=== PATIENT | female | born 1950 | race Caucasian/White ===

== ENCOUNTER 2021-04-08 13:12 | Outpatient (REF) | payer MEDICARE, OTHER, SELFPAY ==
[2021-04-08 16:01] LABS: MANUAL DIFF FLAG NO
[2021-04-08 16:06] LABS: Basophils Percent Auto 0.3 % (0-2); Eosinophils Absolute Auto 0.2 X10*3/uL (0.0-0.4); Eosinophils Percent Auto 2.6 % (0-4); Hematocrit 38.3 % (37-47); Hemoglobin 12.5 g/dl (12.0-16.0); Imm Gran Abs Auto 0.01 X10*3/uL (0.00-0.03); Imm Gran Pct Auto 0.2 % (0.0-0.4); Lymphocytes Percent Auto 33.4 % (20-40); Mean Corpuscular HGB Conc 32.6 g/dl (31.0-35.0); Mean Corpuscular Hemoglobin 31.4 pg (27.0-33.0); Mean Corpuscular Volume 96.2 fL (80-98); Mean Platelet Volume 10.8 fL (9.4-12.3); Monocytes Absolute Auto 0.5 X10*3/uL (0.1-1.2); Monocytes Percent Auto 7.9 % (2-11); Neutrophils Absolute Auto 3.3 X10*3/uL (2.0-8.3); Neutrophils Percent Auto 55.6 % (45-73); Platelet Count 234 X10*3/uL (160-400); Red Blood Count 3.98 X10*6/uL (4.20-5.50); Red Cell Distribution Width 12.3 % (11.0-16.0); White Blood Count 5.8 X10*3/uL (4.8-10.8)
[2021-04-08 16:24] LABS: Alanine Aminotransferase 23 U/L (0-31); Alkaline Phosphatase 66 U/L (39-117); Anion Gap 11 (12-20); Aspartate Amino Transferase 21 U/L (5-31); Bilirubin Total 0.4 mg/dL (0.0-1.0); Blood Urea Nitrogen 18 mg/dL (9-16); Calcium 9.6 mg/dL (8.4-10.2); Carbon Dioxide 28 mmol/L (22-29); Chloride 106 mmol/L (96-108); Cholesterol 165 mg/dL; Estimated Glomerular Filt Rate > 60; Glucose Random 95 mg/dL (60-115); HDL Cholesterol 43 mg/dL; LDL Cholesterol Calculated 102 mg/dl; Sodium 141 mmol/L (135-145); Triglycerides 104 mg/dL
[2021-04-08 16:46] LABS: Thyroid Stimulating Hormone 2.69 uIU/mL (0.32-4.0)
== END 2021-04-08 13:13 | disposition home or self-care (01) ==
LOC: HO.LAB 13:12
PROVIDERS: Absent Provider Internal Medicine; PCP Internal Medicine; Visit Provider Internal Medicine
DX: E78.00 Pure hypercholesterolemia, unspecified (principal); F32.89 Other specified depressive episodes; I10 Essential (primary) hypertension; R05 Cough; I49.3 Ventricular premature depolarization; Z82.49 Family history of ischemic heart disease and other diseases of the circulatory system
CPT/HCPCS: 36415; 80053; 80061; 84443; 85025; 93005; 99202

== ENCOUNTER → 2021-04-22 15:02 | Outpatient (REF) | payer MEDICARE, OTHER, SELFPAY ==
--- NOTE | 2021-04-22 15:10 | HM_ITS ---
Total monitoring time 4 days and 4 hours. Underlying rhythm is sinus. Minimum heart rate 58/minute. Maximum 132/minute. Average 88/Min. About 90% of the time, rate >100/min. No atrial fibrillation or flutter episodes noted. Frequent PVCs noted; burden 6.2%; longest run 3 beats. Occasional PACs; minimal burden; longest run 11 beats. No patient events. MTDD
== END ==
LOC: HO.CARD 15:02
PROVIDERS: PCP Internal Medicine; Visit Provider Internal Medicine
DX: I49.3 Ventricular premature depolarization (principal)
CPT/HCPCS: 93242

== ENCOUNTER → 2021-05-01 14:08 | Outpatient (BNVA) | payer MEDICARE, OTHER, SELFPAY | PROVIDERS: PCP Internal Medicine; Visit Provider Physician Assistant | DX: Z12.11 Encounter for screening for malignant neoplasm of colon (principal); K21.9 Gastro-esophageal reflux disease without esophagitis; R13.10 Dysphagia, unspecified; Z78.9 Other specified health status | CPT/HCPCS: 99202 ==

== ENCOUNTER → 2021-05-09 15:16 | Outpatient (REF) | payer MEDICARE, OTHER, SELFPAY ==
--- NOTE | 2021-05-09 15:22 | CA_ITS ---
Transthoracic Echocardiogram Patient (Last, First, Middle): Sheila Pryor, Gender: Female Date of : 1950 Age: 70 Procedure Date: 05/09/2021 Procedure Type: Transthoracic Echocardiogram Location: OP Height: 172.72 cm Weight: 102.06 kg BSA: 2.15 m2 Heart Rate: bpm BP: 130 / 80 mmHg Lead Business Analyst: VIRGILIO King MD: Earl Qiu MD Symptoms: Z82.49 - Family history of ischemic heart disease and oth... Study Quality: Fair ECG Rhythm: Sinus Conclusions: - The left ventricular systolic function is normal. The visually estimated ejection fraction is between 55-60%. - There is mildly increased left ventricular wall thickness. - No obvious valvular pathology seen on this study. Findings Left Ventricle Normal left ventricular cavity size. There is mildly increased left ventricular wall thickness. The left ventricular systolic function is normal. The visually estimated ejection fraction is between 55-60%. There is no evidence of regional wall motion abnormalities. Diastolic function is indeterminate on the basis of available data. Right Ventricle Normal right ventricular cavity size and systolic function. Atria Both atria are normal in size. Aortic Valve There is a normal trileaflet aortic valve. There is no aortic valve stenosis. There is no aortic valve regurgitation. Mitral Valve The mitral valve appears normal. There is no mitral valve regurgitation. There is no mitral valve stenosis. Pulmonic Valve The pulmonic valve was not well visualized. Tricuspid Valve Normal tricuspid valve structure. There is trace tricuspid valve regurgitation. The pulmonary artery systolic pressure is normal. Great Vessels The aortic annulus, sinuses of valsalva, and asc aorta are normal in size. Venous The inferior vena cava is normal in size and collapses greater than 50% with inspiration. Pericardium/Pleural There is no evidence of pericardial effusion. Prior Study Comparison No prior study available for comparison. Recommendations, Care & Conclusions No obvious valvular pathology seen on this study. Measurements 2D Linear Measurements IVSd: 1.17 0.6-0.9/0.6-1.0 cm LVIDd: 5.10 3.9-5.3/4.2-5.9 cm LVIDd Index: 2.37 2.4-3.2/2.2-3.1 cm/m2 LVIDs: 3.76 2.0-3.6 cm LVPWd: 1.14 0.7-1.1 cm Ao Root: 3.20 2.1-3.5 cm LA Diam: 4.00 2.7-3.8/3.0-4.0 cm LAIDs Index: 1.86 1.5-2.3 cm/m2 LV Mass: 285.19 67-162/88-224 g LV Mass Index: 132.64 43-95/49-115 g/m2 LVOT Diam: 2.10 3.0+(-)1.3 cm 2D Systolic Function EF 4C: 57.70 >55% EF 2C: 55.60 >55% Mitral Valve E'Lateral: 8.27 E'Medial: 8.59 Aortic Valve AoV Pk Darek: 1.29 AoV Mn Darek: 0.94 AoV VTI: 0.26 AoV Pk Grad: 7.00 Aov Mn Grad: 4.00 ALBERTA Cont.VTI: 2.80 LVOT LVOT Pk Darek: 1.02 LVOT Mn Darek: 0.75 LVOT VTI: 0.21 LVOT Pk Grad: 4.00 LVOT Mn Grad: 3.00 LVOT Diam: 2.10 LVOT Area: 3.46 Diastolic Function E'Medial: 8.59 E' Laterial: 8.27 Right Ventricle TAPSE (mm): 2.91 TVS' Darek: 12.30 Tricuspid Valve TR Pk Darek: 2.39 TR Pk Grad: 23.00 RA Press: 3.00 RVSP: 26.00 Great Vessels Aorta Ao Root-2D: 3.20 2.0-3.7 cm Ao Asc: 3.40 2.1-3.4 cm Updated in Other Vendor System with Status of Final Earl Qiu MD electronically signed on 05/10/2021 10:41:33 AM with status of Final
== END ==
LOC: HO.CARD 15:16
PROVIDERS: Visit Provider Internal Medicine
DX: I49.3 Ventricular premature depolarization (principal); I10 Essential (primary) hypertension; Z82.49 Family history of ischemic heart disease and other diseases of the circulatory system
CPT/HCPCS: 93306

== ENCOUNTER 2021-06-05 14:51 | Outpatient (REF) | payer MEDICARE, OTHER, SELFPAY ==
[2021-06-05 16:32] LABS: Alanine Aminotransferase 22 U/L (0-31); Albumin Level 4.1 g/dL (3.5-5.0); Alkaline Phosphatase 74 U/L (39-117); Anion Gap 10 (12-20); Aspartate Amino Transferase 22 U/L (5-31); Bilirubin Total 0.4 mg/dL (0.0-1.0); Blood Urea Nitrogen 19 mg/dL (9-16); Calcium 9.6 mg/dL (8.4-10.2); Carbon Dioxide 31 mmol/L (22-29); Chloride 104 mmol/L (96-108); Cholesterol 191 mg/dL; Estimated Glomerular Filt Rate 56; Glucose Random 78 mg/dL (60-115); HDL Cholesterol 45 mg/dL; LDL Cholesterol Calculated 134 mg/dl; Potassium 3.9 mmol/L (3.3-5.1); Sodium 141 mmol/L (135-145); Total Protein 7.1 g/dL (6.5-8.0); Triglycerides 62 mg/dL
== END 2021-06-05 14:52 | disposition home or self-care (01) ==
LOC: HO.LAB 14:51
PROVIDERS: Absent Provider Internal Medicine; PCP Internal Medicine; Referring Provider Internal Medicine; Visit Provider Internal Medicine
DX: Z00.00 Encounter for general adult medical examination without abnormal findings (principal); F33.42 Major depressive disorder, recurrent, in full remission; I10 Essential (primary) hypertension; R13.19 Other dysphagia
CPT/HCPCS: 36415; 80053; 80061; 99212

== ENCOUNTER 2021-07-26 10:44 | Outpatient (REF) | payer MEDICARE, OTHER, SELFPAY ==
--- NOTE | ~2021-07-26 | FL_ITS ---
EXAMINATION: FL BARIUM SWALLOW CLINICAL INFORMATION: Dysphagia. COMPARISON: None TECHNIQUE: Barium swallow examination is performed using fluoroscopic evaluation in addition to multiple fluoroscopic spot views. The patient is imaged both upright and prone and using both thick and thin sulfate along with effervescent granules. Fluoroscopy time: 1.8 minutes DAP: 10.498 Gy-cm2 Images: 84 FINDINGS: Following intravenous administration of thick barium and barium-coated turkey, there is normal propagation of bolus from the oral cavity through the pharynx, esophagus into stomach without any evidence of obstruction, narrowing or stricture. There is mild retention in the piriform sinuses which clears with subsequent swallowing. Trace laryngeal penetration is seen. There is no aspiration. On placing patient prone lying and oral administration of thin barium, there is good distention of the entire esophagus without any evidence of obstruction, narrowing or stricture. There is a small to moderate-sized sliding hiatal hernia with moderate gastroesophageal reflux. FL/FL barium swallow IMPRESSION: Unremarkable esophagus except for trace laryngeal penetration. Moderate-sized sliding hiatal hernia with moderate gastroesophageal reflux.
== END 2021-07-26 10:45 | disposition home or self-care (01) ==
LOC: HO.XRAY 10:44
PROVIDERS: PCP Internal Medicine; Visit Provider Physician Assistant
DX: R13.10 Dysphagia, unspecified (principal); K21.9 Gastro-esophageal reflux disease without esophagitis
CPT/HCPCS: 74220

== ENCOUNTER 2021-07-26 12:05 | Emergency (ER) | payer MEDICARE, OTHER, SELFPAY ==
--- NOTE | ~2021-07-26 | XR_ITS ---
EXAMINATION: XR FINGER, LEFT CLINICAL INFORMATION: Pain and swelling COMPARISON: None TECHNIQUE: Three views of the left thumb. FINDINGS: There is a nondisplaced fracture through the base of the distal phalanx of the thumb. This does not appear intra-articular with the IP joint. There is mild arthritis at the IP joint. There is overlying soft tissue swelling. XR/XR finger LT min 2V IMPRESSION: Nondisplaced fracture of the base of the distal phalanx of the thumb.
[2021-07-26 12:08] VITALS: BP 144/71; PULSE 88; RESP 18; TEMP 36.7; O2SAT 94; BMI 32.6
--- NOTE | 2021-07-26 13:17 | ED.EXTPRO ---
HPI - Extremity Problem General Chief complaint: Extremity Injury, Upper Stated complaint: Thumb inj Time Seen by Provider: 07/26/21 13:17 Source: patient Mode of arrival: ambulatory History of Present Illness HPI Narrative: 70-year-old female with no significant past medical history presenting to the ED complaining of left thumb swelling & pain x2 weeks s/p trunk door crushing finger. Denies numbness, tingling, weakness, injury to other area. MD Complaint: extremity pain, extremity swelling and joint paint Onset (ago): week(s) Related Data Home Medications Medication Instructions Recorded Confirmed bupropion HCl 300 mg 24 hr tablet, 300 mg PO DAILY 04/08/21 06/05/21 extended release hydrochlorothiazide 12.5 mg capsule 12.5 mg PO DAILY 04/08/21 06/05/21 losartan 50 mg tablet 50 mg PO DAILY 04/08/21 06/05/21 meloxicam 15 mg tablet 15 mg PO DAILY 04/08/21 06/05/21 omeprazole 40 mg capsule,delayed 40 mg PO DAILY 04/08/21 06/05/21 release oxybutynin chloride 15 mg 15 mg PO DAILY 04/08/21 06/05/21 tablet,extended release 24 hr sertraline 100 mg tablet 200 mg PO DAILY 04/08/21 06/05/21 simvastatin 40 mg tablet 40 mg PO BEDTIME 04/08/21 06/05/21 Previous Rx's Medication Instructions Recorded methylcellulose (laxative) 500 mg 500 mg PO BID #60 tab 05/01/21 tablet (Citrucel) Allergies Allergy/AdvReac Type Severity Reaction Status Date / Time No Known Allergies Allergy Verified 07/26/21 12:08 Review of Systems Review of Systems: Constitutional: No Fever, No Chills ENT/Mouth: No Ear Pain, No Nasal Congestion, No sore throat, No Rhinorrhea Cardiovascular: No Chest Pain, No SOB Respiratory: No Cough, No Sputum Gastrointestinal: No Nausea, No Vomiting, No Diarrhea, No Constipation, No Abdominal pain Genitourinary: No Dysuria, No Urgency, No Flank Pain Musculoskeletal: + joint pain, No Myalgias, + Joint Swelling Skin: No Skin Lesions, No rash Neuro: No Weakness, No Numbness, No Paresthesias Yes all other systems are reviewed and are negative [facility] Past Medical History Attestation statement: The following information was validated with the patient. Medical History Breast abscess Surgical History History of esophagogastroduodenoscopy (EGD) Hx of colonoscopy No pertinent past surgical history Family History Family History Mother Stroke Father No problems noted. Brother Myocardial infarction Son History of open heart surgery, Onset Age: 36 Pacemaker, Onset Age: 36 Social History Social History Household Members Other:: lives with son Alcohol intake: never Patient Tobacco Use Status: Former Tobacco user Quit Date: 30 yrs ago Advance Directives: Yes Advance Directives Information Provided: Yes Advance Directives on File: No Current occupational status: disabled Physical Exam Vital Signs: Vital Signs: Last Vital Signs Temp 98.0 F 07/26/21 12:08 Pulse 88 07/26/21 12:08 Resp 18 07/26/21 12:08 BP 144/71 H 07/26/21 12:08 Pulse Ox 94 07/26/21 12:08 BMI result Body Mass Index 32.6 Const: General: cooperative, healthy appearing and no acute distress Orientation/consciousness: patient oriented x3 Limitations: no limitations HENMT: Head: Yes normal to inspection Ears: hearing grossly normal bilaterally General nose exam: Normal external nose present Face and sinus: Yes normal facial exam Eyes: General: appearance normal, both eyes and all related structures EOM: EOMs intact bilaterally Neck: Neck: Yes normal visual inspection and Yes no meningeal signs Resp: Effort & Inspection: normal respiratory effort and no respiratory distress Cardio: Rate: regular rate Peripheral pulses: radial pulses present Skin: Rashes: no rashes Wounds: no wounds Neuro: General: patient oriented x3 and no meningeal signs Gait exam (Neuro): Normal gait present Extrem: Other: Left distal thumb with noted swelling and mild subungual hematoma. Tender to palpation. Mild limited flexion to PIP secondary to pain. [id number] opposition intact. Sensation intact to light touch. Course Course Course Narrative: XR finger LT min 2V IMPRESSION: Nondisplaced fracture of the base of the distal phalanx of the thumb >> patient placed in finger splint, is to follow-up with orthopedics Discharge Plan Discharge Clinical Impression: Fracture of phalanx of digit of hand Qualifiers: Encounter type: initial encounter Fracture type: closed Qualified Code(s): S62.609A - Fracture of unspecified phalanx of unspecified finger, initial encounter for closed fracture Patient Disposition: Home, Self-Care Instructions: Finger Fracture (ED) Additional Instructions: You broke the distal part of her thumb Wear splint at all times, keep dry and clean Follow-up with naval architect specialist in 1 week Take Tylenol and Motrin Ice and elevate if pain becomes unbearable, finger looks infected, or you develop fever please return to the ED Prescriptions: No Action Citrucel 500 mg tablet 500 mg PO BID Qty: 60 RF: 5 hydrochlorothiazide 12.5 mg capsule 12.5 mg PO DAILY RF: 0 omeprazole 40 mg capsule,delayed release(DR/EC) 40 mg PO DAILY RF: 0 sertraline 100 mg tablet 200 mg PO DAILY RF: 0 simvastatin 40 mg tablet 40 mg PO BEDTIME RF: 0 losartan 50 mg tablet 50 mg PO DAILY RF: 0 bupropion HCl 300 mg tablet extended release 24 hr 300 mg PO DAILY RF: 0 oxybutynin chloride 15 mg tablet extended release 24hr 15 mg PO DAILY RF: 0 meloxicam 15 mg tablet 15 mg PO DAILY RF: 0 Referrals: Simone Mckee PA-C [Physician Industrial Engineering Director] - 5 days
== END 2021-07-26 13:41 | disposition home or self-care (01) ==
PROVIDERS: Emergency Provider Emergency Medicine; PCP Internal Medicine
DX: S62.502A Fracture of unspecified phalanx of left thumb, initial encounter for closed fracture (principal); R22.32 Localized swelling, mass and lump, left upper limb; Y29.XXXA Contact with blunt object, undetermined intent, initial encounter; Y93.9 Activity, unspecified; Y92.9 Unspecified place or not applicable; Y99.9 Unspecified external cause status; Z79.899 Other long term (current) drug therapy
CPT/HCPCS: 29130; 73140; 99283

== ENCOUNTER 2021-09-09 17:18 | Outpatient (REF) | payer MEDICARE, OTHER, SELFPAY | END 2021-09-09 17:19 | disposition home or self-care (01) | LOC: HO.LAB 17:18 | PROVIDERS: PCP Internal Medicine; Visit Provider Internal Medicine | DX: Z13.89 Encounter for screening for other disorder (principal) ==

== ENCOUNTER 2021-09-23 16:52 | Outpatient (REF) | payer MEDICARE, OTHER, SELFPAY ==
--- NOTE | ~2021-09-23 | XR_ITS ---
EXAMINATION: XR HIP, LEFT CLINICAL INFORMATION: Osteoarthritis COMPARISON: None TECHNIQUE: Two views of the left hip. FINDINGS: Bone alignment is normal. No fracture or dislocation is seen. There is mild left hip arthritis with small osteophytes. There are degenerative changes at the pubic symphysis. Soft tissues are unremarkable. XR/XR hip LT min 2V IMPRESSION: Mild left hip arthritis.
== END 2021-09-23 16:53 | disposition home or self-care (01) ==
LOC: HO.XRAY 16:52
PROVIDERS: PCP Internal Medicine; Visit Provider Internal Medicine
DX: M16.12 Unilateral primary osteoarthritis, left hip (principal)
CPT/HCPCS: 73502

== ENCOUNTER 2021-10-22 16:50 | Outpatient (REF) | payer MEDICARE, OTHER, SELFPAY ==
[2021-10-22 17:03] LABS: MANUAL DIFF FLAG NO
[2021-10-22 17:13] LABS: Basophils Percent Auto 0.5 % (0-2); Eosinophils Absolute Auto 0.2 X10*3/uL (0.0-0.4); Eosinophils Percent Auto 2.9 % (0-4); Hematocrit 41.1 % (37.0-47.0); Hemoglobin 13.6 g/dl (12.0-16.0); Imm Gran Abs Auto 0.01 X10*3/uL (0.00-0.03); Imm Gran Pct Auto 0.2 % (0.0-0.4); Lymphocytes Absolute Auto 1.9 X10*3/uL (1.2-4.9); Lymphocytes Percent Auto 34.1 % (20-40); Mean Corpuscular HGB Conc 33.1 g/dl (31.0-35.0); Mean Corpuscular Hemoglobin 31.5 pg (27.0-33.0); Mean Corpuscular Volume 95.1 fL (80.0-98.0); Mean Platelet Volume 10.4 fL (9.4-12.3); Monocytes Absolute Auto 0.5 X10*3/uL (0.1-1.2); Monocytes Percent Auto 8.3 % (2-11); Platelet Count 252 X10*3/uL (160-400); Red Blood Count 4.32 X10*6/uL (4.20-5.50); Red Cell Distribution Width 11.9 % (11.0-16.0); White Blood Count 5.6 X10*3/uL (4.8-10.8)
[2021-10-22 17:25] LABS: D Dimer High Sensitivity 163 NG/ML
[2021-10-22 18:23] LABS: Alanine Aminotransferase 29 U/L (0-31); Albumin Level 4.3 g/dL (3.5-5.0); Alkaline Phosphatase 74 U/L (39-117); Anion Gap 12 (12-20); Aspartate Amino Transferase 24 U/L (5-31); Bilirubin Total 0.4 mg/dL (0.0-1.0); Blood Urea Nitrogen 26 mg/dL (9-16); Calcium 10.6 mg/dL (8.4-10.2); Carbon Dioxide 32 mmol/L (22-29); Chloride 101 mmol/L (96-108); Cholesterol 148 mg/dL; Estimated Glomerular Filt Rate 58; Glucose Random 99 mg/dL (60-115); HDL Cholesterol 49 mg/dL; LDL Cholesterol Calculated 87 mg/dl; Potassium 4.2 mmol/L (3.3-5.1); Sodium 141 mmol/L (135-145); Total Protein 7.5 g/dL (6.5-8.0); Triglycerides 64 mg/dL
[2021-10-22 18:38] LABS: Thyroid Stimulating Hormone 4.11 uIU/mL (0.32-4.0)
== END 2021-10-22 16:51 | disposition home or self-care (01) ==
LOC: HO.LAB 16:50
PROVIDERS: PCP Internal Medicine; Visit Provider Internal Medicine
DX: E78.00 Pure hypercholesterolemia, unspecified (principal); I10 Essential (primary) hypertension; K22.4 Dyskinesia of esophagus; R60.0 Localized edema
CPT/HCPCS: 36415; 80053; 80061; 84443; 85025; 85379

== ENCOUNTER 2022-05-21 15:59 | Outpatient (REF) | payer MEDICARE, OTHER, SELFPAY ==
[2022-05-21 16:15] LABS: MANUAL DIFF FLAG NO
[2022-05-21 16:38] LABS: Basophils Percent Auto 0.3 % (0-2); Eosinophils Absolute Auto 0.2 X10*3/uL (0.0-0.4); Eosinophils Percent Auto 3.3 % (0-4); Hematocrit 38.1 % (37.0-47.0); Hemoglobin 12.9 g/dl (12.0-16.0); Imm Gran Abs Auto 0.01 X10*3/uL (0.00-0.03); Imm Gran Pct Auto 0.2 % (0.0-0.4); Lymphocytes Absolute Auto 2.7 X10*3/uL (1.2-4.9); Lymphocytes Percent Auto 43.6 % (20-40); Mean Corpuscular HGB Conc 33.9 g/dl (31.0-35.0); Mean Corpuscular Hemoglobin 31.6 pg (27.0-33.0); Mean Corpuscular Volume 93.4 fL (80.0-98.0); Mean Platelet Volume 10.1 fL (9.4-12.3); Monocytes Absolute Auto 0.6 X10*3/uL (0.1-1.2); Monocytes Percent Auto 9.7 % (2-11); Neutrophils Absolute Auto 2.6 x10*3/uL (2.0-8.3); Neutrophils Percent Auto 42.9 % (45-73); Platelet Count 255 X10*3/uL (160-400); Red Blood Count 4.08 X10*6/uL (4.20-5.50); Red Cell Distribution Width 11.8 % (11.0-16.0); White Blood Count 6.1 X10*3/uL (4.8-10.8)
[2022-05-21 17:03] LABS: Alanine Aminotransferase 23 U/L (0-31); Albumin Level 4.1 g/dL (3.5-5.0); Alkaline Phosphatase 76 U/L (39-117); Anion Gap 14 (12-20); Aspartate Amino Transferase 23 U/L (5-31); Bilirubin Total 0.3 mg/dL (0.0-1.0); Blood Urea Nitrogen 23 mg/dL (9-16); Calcium 9.6 mg/dL (8.4-10.2); Carbon Dioxide 29 mmol/L (22-29); Chloride 102 mmol/L (96-108); Cholesterol 159 mg/dL; Estimated Glomerular Filt Rate 58; Glucose Random 94 mg/dL (60-115); HDL Cholesterol 45 mg/dL; LDL Cholesterol Calculated 97 mg/dl; Sodium 141 mmol/L (135-145); Total Protein 7.1 g/dL (6.5-8.0); Triglycerides 87 mg/dL
[2022-05-21 17:26] LABS: Thyroid Stimulating Hormone 4.64 uIU/mL (0.32-4.0); Vitamin D 25-OH Total 29.2 ng/mL (>30)
[2022-05-21 17:34] LABS: Vitamin B12 637 pg/mL (200-900)
== END 2022-05-21 16:00 | disposition home or self-care (01) ==
LOC: HO.LAB 15:59
PROVIDERS: PCP Internal Medicine; Visit Provider Internal Medicine
DX: E03.8 Other specified hypothyroidism (principal); E78.00 Pure hypercholesterolemia, unspecified; F32.4 Major depressive disorder, single episode, in partial remission; I10 Essential (primary) hypertension
CPT/HCPCS: 36415; 80053; 80061; 82306; 82607; 84443; 85025

== ENCOUNTER → 2022-07-14 09:06 | Day surgery (SDC) | payer MEDICARE, OTHER, SELFPAY ==
--- NOTE | 2022-07-11 10:57 | HO.ANESPROP2 ---
HPI - Anesthesia Eval Consult details Narrative: 71yo F for Colonoscopy PMFSH Active Problems Active Problems: All Active Problems (Updated 07/11/22 @ 10:57 by Hazel Bryant RN) Family history of cardiomyopathy (Acute) PVC (premature ventricular contraction) (Acute) Essential hypertension (Acute) Poor historian (Acute) Encounter for screening colonoscopy (Acute) Dysphagia (Acute) Acid reflux (Acute) Past Medical History Medical History (Updated 07/11/22 @ 10:57 by Hazel Bryant RN) Breast abscess Depression HTN (hypertension) Hyperlipemia Lower extremity edema Family History Family History Mother Stroke Father No problems noted. Brother Myocardial infarction Son History of open heart surgery, Onset Age: 36 Pacemaker, Onset Age: 36 Surgical History Surgical History (Updated 07/11/22 @ 10:57 by Hazel Bryant RN) H/O hemorrhoidectomy History of esophagogastroduodenoscopy (EGD) Hx of colonoscopy Social History Social History Household Members Other:: lives with son Alcohol intake: never Patient Tobacco Use Status: Former Tobacco user Quit Date: 30 yrs ago Current occupational status: disabled Meds Allergies Allergy/AdvReac Type Severity Reaction Status Date / Time No Known Allergies Allergy Verified 07/26/21 12:08 Home Medications Medication Instructions Recorded Confirmed Last Taken Type bupropion HCl 300 mg 24 hr tablet, 300 mg PO DAILY 04/08/21 06/05/21 Unknown History extended release hydrochlorothiazide 12.5 mg capsule 12.5 mg PO DAILY 04/08/21 06/05/21 Unknown History losartan 50 mg tablet 50 mg PO DAILY 04/08/21 06/05/21 Unknown History meloxicam 15 mg tablet 15 mg PO DAILY 04/08/21 06/05/21 Unknown History omeprazole 40 mg capsule,delayed 40 mg PO DAILY 04/08/21 06/05/21 Unknown History release oxybutynin chloride 15 mg 15 mg PO DAILY 04/08/21 06/05/21 Unknown History tablet,extended release 24 hr sertraline 100 mg tablet 200 mg PO DAILY 04/08/21 06/05/21 Unknown History simvastatin 40 mg tablet 40 mg PO BEDTIME 04/08/21 06/05/21 Unknown History Exam Exam Date and Time: July 11, 2022 1057 Pertinent Lab Results Pertinent Lab Results: Laboratory Tests 05/21/22 05/21/22 16:13 16:13 WBC 6.1 Hgb 12.9 Hct 38.1 Plt Count 255 Sodium 141 Potassium 4.0 Chloride 102 Carbon Dioxide 29 BUN 23 H Creatinine 0.96 Narrative Narrative: From 2020 cardiology visit: Recent EKG shows sinus rhythm at 89/Min; PVCs; normal [place]/QTc.? Echocardiogram with normal LVEF, 55-60%, mild left ventricular hypertrophy but otherwise unremarkable.? Holter shows underlying sinus rhythm with frequent premature ventricular contractions but no significant runs. Overall, the PVCs are probably not causing any of her symptoms.? Preserved LVEF on the echocardiogram is reassuring.? Assessment and Plan Assessment Anesthesia Assessment: Chart Reviewed
== END ==
PROVIDERS: PCP Internal Medicine; Visit Provider Internal Medicine
DX: Z12.11 Encounter for screening for malignant neoplasm of colon (principal); Z53.8 Procedure and treatment not carried out for other reasons

== ENCOUNTER 2022-09-15 13:16 | Day surgery (SDC) | payer MEDICARE, OTHER, SELFPAY ==
[2022-09-15 06:22] VITALS: BMI 34.1
[2022-09-15 13:21] VITALS: BP 159/96; PULSE 84; RESP 20; TEMP 36.9; O2SAT 97
--- NOTE | 2022-09-15 13:39 | PC.NURSE ---
no meds taken today
[2022-09-15] MEDS: Lactated Ringers 1,000 ML 50 ML IVCONT (14:00)
--- NOTE | 2022-09-15 14:15 | HO.ANESPROP2 ---
[facility] Active Problems Active Problems: All Active Problems (Updated 07/11/22 @ 10:57 by Hazel Bryant RN) Family history of cardiomyopathy (Acute) PVC (premature ventricular contraction) (Acute) Essential hypertension (Acute) Poor historian (Acute) Encounter for screening colonoscopy (Acute) Dysphagia (Acute) Acid reflux (Acute) Past Medical History Medical History (Updated 07/11/22 @ 10:57 by Hazel Bryant RN) Breast abscess Depression HTN (hypertension) Hyperlipemia Lower extremity edema Family History Family History Mother Stroke Father No problems noted. Brother Myocardial infarction Son History of open heart surgery, Onset Age: 36 Pacemaker, Onset Age: 36 Family history of problems with anesthesia: No Surgical History Surgical History (Updated 09/15/22 @ 14:07 by Roberta Cabrera RN) H/O hemorrhoidectomy History of esophagogastroduodenoscopy (EGD) History of lumpectomy Hx of colonoscopy History of Problems with Anesthesia: No Social History Social History Household Members Other:: lives with son Alcohol intake: never Patient Tobacco Use Status: Former Tobacco user Quit Date: 30 yrs ago Advance Directives: No Advance Directives Information Provided: Yes Recently lost weight without trying: No Nutrition Risks: No Nutritional Risk Current occupational status: disabled Meds Allergies Allergy/AdvReac Type Severity Reaction Status Date / Time No Known Allergies Allergy Verified 07/26/21 12:08 Active Medications: Current Medications Lactated Ringer's (Lr) 1,000 mls @ 50 mls/hr IVCONT .Q20H RAMILA Last Admin: 09/15/22 14:00 Dose: 50 mls/hr Sodium Biphosphate/Sodium Phosphate (Sodium Phosphate,[place]-Dibasic 133 Ml Enema) 133 ml MS ONCE PRN PRN Reason: Poor Colonoscopy Prep Results Home Medications Medication Instructions Recorded Confirmed Last Taken Type bupropion HCl 300 mg 24 hr tablet, 300 mg PO DAILY 04/08/21 09/15/22 09/14/22 History extended release hydrochlorothiazide 12.5 mg capsule 12.5 mg PO DAILY 04/08/21 09/15/22 09/14/22 History losartan 50 mg tablet 50 mg PO DAILY 0809/15/22 09/14/22 History meloxicam 15 mg tablet 15 mg PO DAILY 04/08/21 09/15/22 09/13/22 History omeprazole 40 mg capsule,delayed 40 mg PO DAILY 04/08/21 09/15/22 09/14/22 History release oxybutynin chloride 15 mg 15 mg PO DAILY 04/08/21 09/15/22 09/14/22 History tablet,extended release 24 hr sertraline 100 mg tablet 200 mg PO DAILY 04/08/21 09/15/22 09/14/22 History furosemide 20 mg tablet 1 tab PO DAILY 07/11/22 09/15/22 09/14/22 History metoprolol succinate 50 mg 1 tab PO DAILY 07/11/22 09/15/22 09/14/22 History tablet,extended release 24 hr rosuvastatin 20 mg tablet 1 tab PO DAILY 07/11/22 09/15/22 09/14/22 History Exam Exam Date and Time: September 15, 2022 1415 Height,Weight and Vital Signs: Height 5 ft 7.5 in Weight 100.244 kg Last Vital Signs Temp 98.4 F 09/15/22 13:21 Pulse 84 09/15/22 13:21 Resp 20 09/15/22 13:21 BP 159/96 H 09/15/22 13:21 Pulse Ox 97 09/15/22 13:21 O2 Del Method 09/15/22 13:21 Airway Mallampati Class: II (Implants lower) TM Dist: >3cm Neck ROM: Full Denture: Upper Heart: rrr Lungs: cta Assessment and Plan Assessment Anesthesia Assessment: Anesthesia Plan Discussed and Chart Reviewed Final Anesthetic Review Family History of Problems with Anesthesia: No History of Problems with Anesthesia: No NPO: Yes ASA Class: II Final Preanesthetic Review: No Changes in Pt Med Stat, Meds/Allgs Chart Reviewed and Consent Obtained/Reviewed Patient Risk: Intermediate Procedure Risk: Intermediate Anesthetic Plan Anesthetic Plan: MAC: Disposition: Standard PACU
[2022-09-15 15:17] VITALS: BP 97/55; PULSE 82; RESP 16; TEMP 36.7; O2SAT 93
--- NOTE | 2022-09-15 15:22 | P.BOP_ITS ---
Brief Operative Note Date of Service: 09/15/22 Pre-op diagnosis: Screening Post-op diagnosis: other (Diverticulosis) Procedure: Colonoscopy to the cecum Surgeon: Jose De Jesus Sanchez Anesthesia: MAC Was an Senior Report Developer used for this Procedure?: No Estimated blood loss (mL): 0 Pathology: none sent Condition: stable Disposition: PACU
[2022-09-15 15:32] VITALS: BP 109/73; PULSE 75; RESP 16; O2SAT 95
[2022-09-15 15:47] VITALS: BP 116/68; PULSE 66; RESP 16; TEMP 36.1; O2SAT 96
--- NOTE | 2022-09-16 03:23 | OP_ITS ---
SURGEON: Jose De Jesus Sanchez MD INDICATIONS: The patient presents for evaluation of colorectal cancer screening, family history of colon polyps, and occasional hematochezia. Full consent has been obtained from her for this, including risks of bleeding and perforation. PREOPERATIVE DIAGNOSIS: POSTOPERATIVE DIAGNOSIS: PROCEDURE PERFORMED: Colonoscopy to the cecum. ESTIMATED BLOOD LOSS: COMPLICATIONS: ANESTHESIA: Medication used, monitored anesthesia care. ASSISTANTS: SPECIMENS: PREOPERATIVE DIAGNOSES: Colorectal cancer screening, hematochezia, and family history of colon polyps. POSTOPERATIVE DIAGNOSES: Colorectal cancer screening, hematochezia, and family history of colon polyps, diverticulosis, and internal hemorrhoids. DESCRIPTION OF PROCEDURE: The patient was placed in the left lateral decubitus position. The digital rectal exam revealed no abnormalities. The Olympus video pediatric colonoscope was entered into the rectum and advanced easily to the cecum. Once in the cecum, I did identify normal-appearing cecal pouch with appendiceal orifice and a normal-appearing ileocecal valve. There was transillumination of light deep in the right lower quadrant. The entire cecum and ileocecal valve appeared normal. The scope was slowly withdrawn assessing all mucosal surfaces carefully. Preparation was excellent. I did not visualize any other polyp, colitis, or angiodysplasias. There is a mild amount of sigmoid diverticulosis. In the rectum, the scope was retroflexed visualizing internal hemorrhoids, but no other pathology. The rectal mucosa appeared normal. The scope was straightened and withdrawn from the patient. She tolerated the procedure well and was returned to the recovery area in stable condition. IMPRESSION: 1. Diverticulosis. 2. Internal hemorrhoids. PLAN: Given her negative colonoscopy and at least 1 or 2 previous negative exams, as well as her age of 71, I do not think she will need any further screening colonoscopies. She will see me again on a p.r.n. basis. She was advised to maintain a good bowel regimen to avoid any significant constipation. MD TRAE Pathak/MADAN / [id number] MTDD
== END 2022-09-15 16:08 | disposition home or self-care (01) ==
PROVIDERS: PCP Internal Medicine; Visit Provider Internal Medicine
PROC: 0DJD8ZZ Inspection of Lower Intestinal Tract, Via Natural or Artificial Opening Endoscopic (ICD-10-PCS; CPT 45378; principal; 2022-09-15 13:20)
DX: Z12.11 Encounter for screening for malignant neoplasm of colon (principal); Z83.71 Family history of colonic polyps; K57.30 Diverticulosis of large intestine without perforation or abscess without bleeding; K64.8 Other hemorrhoids; K21.9 Gastro-esophageal reflux disease without esophagitis; I10 Essential (primary) hypertension; E78.5 Hyperlipidemia, unspecified; R60.0 Localized edema; Z79.899 Other long term (current) drug therapy; Z87.891 Personal history of nicotine dependence
CPT/HCPCS: G0105; J2370

== ENCOUNTER 2022-11-25 13:00 | Emergency (ER) | payer MEDICARE, OTHER, SELFPAY ==
--- NOTE | ~2022-11-25 | XR_ITS ---
EXAMINATION: XR LUMBOSACRAL SPINE CLINICAL INFORMATION: Low back pain COMPARISON: None available. TECHNIQUE: Three views of the lumbosacral spine. FINDINGS: Thoracolumbar dextroscoliosis noted. Slight anterolisthesis L5-S1. There is a compression deformity at the approximate L1 level, with the acuity uncertain. There is multilevel facet arthrosis. Mild eccentric degenerative disc space narrowing L4-L5. XR/XR lumbar spine 2-3V IMPRESSION: Compression deformity at the approximate level of L1 with the acuity uncertain. Slight anterolisthesis L5-S1 level. Mild disc space narrowing L4-L5. Facet arthrosis.
[2022-11-25 13:21] VITALS: BP 124/85; PULSE 80; RESP 16; TEMP 36.7; O2SAT 93; BMI 33.4
--- NOTE | 2022-11-25 13:21 | ED_ITS ---
HPI - Back Pain/Injury General Chief Complaint: Back Pain/Injury <CAROLINA Brown - Last Filed: 11/25/22 13:23> Stated Complaint: Back Pain Burning No Injury <CAROLINA Brown - Last Filed: 11/25/22 13:23> Time Seen by Provider: 11/25/22 13:38 <CAROLINA Brown - Last Filed: 11/25/22 13:23> Source: patient <CAROLINA Murillo - Last Filed: 11/25/22 15:51> Mode of arrival: ambulatory <CAROLINA Murillo - Last Filed: 11/25/22 15:51> Limitations: no limitations <CAROLINA Murillo Last Filed: 11/25/22 15:51> History of Present Illness HPI Narrative: 72yo female presenting for evaluation of lower back pain that she has been experiencing for years. Patient stated that she has been evaluated by multiple doctors including a habilitation specialist for this pain but they have no been able to find anything causing it. She stated that the pain has been worsening over the past 2-3 years. She denied chest pain or SOB. She denies any recent trauma, reports falling off of a roof several years ago. Pain was located across her entire lower back, started on right and radiated to the left side. Worse with movement. <CAROLINA Murillo - Last Filed: 11/25/22 15:51> MD elicited complaint: back pain <CAROLINA Murillo Last Filed: 11/25/22 15:51> Pertinent past history: prior back pain <CAROLINA Murillo Last Filed: 11/25/22 15:51> Onset (ago): year(s) <CAROLINA Murillo Last Filed: 11/25/22 15:51> Timing: progressively worsening <CAROLINA Murillo Last Filed: 11/25/22 15:51> Similar Symptoms Previously: Yes <CAROLINA Murillo - Last Filed: 11/25/22 15:51> Quality: burning and dull <CAROLINA Murillo Last Filed: 11/25/22 15:51> Location: lumbar spine <CAROLINA Murillo - Last Filed: 11/25/22 15:51> Exacerbating factors: movement <CAROLINA Murillo - Last Filed: 11/25/22 15:51> Relieving factors: movement <CAROLINA Murillo - Last Filed: 11/25/22 15:51> Context: unknown <CAROLINA Murillo Last Filed: 11/25/22 15:51> Associated symptoms: urinary incontinence (chronic for years) <CAROLINA Murillo - Last Filed: 11/25/22 15:51> Work related injury: No <CAROLINA Murillo - Last Filed: 11/25/22 15:51> Related Data Home Medications: Home Medications Medication Instructions Recorded Confirmed bupropion HCl 300 mg 24 hr tablet, 300 mg PO DAILY 04/08/21 09/15/22 extended release hydrochlorothiazide 12.5 mg capsule 12.5 mg PO DAILY 04/08/21 09/15/22 losartan 50 mg tablet 50 mg PO DAILY 04/08/21 09/15/22 meloxicam 15 mg tablet 15 mg PO DAILY 04/08/21 09/15/22 omeprazole 40 mg capsule,delayed 40 mg PO DAILY 04/08/21 09/15/22 release oxybutynin chloride 15 mg 15 mg PO DAILY 04/08/21 09/15/22 tablet,extended release 24 hr sertraline 100 mg tablet 200 mg PO DAILY 04/08/21 09/15/22 furosemide 20 mg tablet 1 tab PO DAILY 07/11/22 09/15/22 metoprolol succinate 50 mg 1 tab PO DAILY 07/11/22 09/15/22 tablet,extended release 24 hr rosuvastatin 20 mg tablet 1 tab PO DAILY 07/11/22 09/15/22 Previous Rx's Medication Instructions Recorded methylcellulose (laxative) 500 mg 500 mg PO BID #60 tabs 05/01/21 tablet (Citrucel) lidocaine 5 % topical patch 1 patch topical DAILY #15 ea 11/25/22 (Lidoderm) <CAROLINA Brown Last Filed: 11/25/22 13:23> Allergies/Adverse Reactions: Allergies Allergy/AdvReac Type Severity Reaction Status Date / Time No Known Allergies Allergy Verified 07/26/21 12:08 <CAROLINA Brown - Last Filed: 11/25/22 13:23> Review of Systems Review of Systems: Yes all other systems are reviewed and are negative <CAROLINA Murillo - Last Filed: 11/25/22 15:51> [facility] Past Medical History Medical History: Medical History (Updated 11/25/22 @ 15:40 by CAROLINA Murillo) Breast abscess Depression HTN (hypertension) Hyperlipemia Lower extremity edema <CAROLINA Brown - Last Filed: 11/25/22 13:23> Surgical History: Surgical History (Updated 09/15/22 @ 14:07 by Roberta Cabrera RN) H/O hemorrhoidectomy History of esophagogastroduodenoscopy (EGD) History of lumpectomy Hx of colonoscopy <CAROLINA Brown - Last Filed: 11/25/22 13:23> Family History Family History: Family History Mother Stroke Father No problems noted. Brother Myocardial infarction Son History of open heart surgery, Onset Age: 36 Pacemaker, Onset Age: 36 <CAROLINA Brown - Last Filed: 11/25/22 13:23> Social History Social History: Social History Household Members Other:: lives with son Alcohol intake: never Patient Tobacco Use Status: Former Tobacco user Quit Date: 30 yrs ago Advance Directives: No Current occupational status: disabled <CAROLINA Brown - Last Filed: 11/25/22 13:23> Physical Exam Vital Signs: Vital Signs: Last Vital Signs Temp 98.0 F 11/25/22 13:21 Pulse 80 11/25/22 13:21 Resp 16 11/25/22 13:21 BP 124/85 11/25/22 13:21 Pulse Ox 93 11/25/22 13:21 O2 Del Method Room Air 11/25/22 13:21 BMI result Body Mass Index 33.4 <CAROLINA Brown - Last Filed: 11/25/22 13:23> Vital Signs: Last Vital Signs Temp 98.0 F 11/25/22 13:21 Pulse 80 11/25/22 13:21 Resp 16 11/25/22 13:21 BP 124/85 11/25/22 13:21 Pulse Ox 93 11/25/22 13:21 O2 Del Method Room Air 11/25/22 13:21 BMI result Body Mass Index 33.4 <CAROLINA Murillo - Last Filed: 11/25/22 15:51> Appearance: Alert. Oriented X3. No acute distress. HEENT: normal inspection CVS: Normal heart rate and rhythm. Pulses normal. Respiratory: No respiratory distress. Skin: Skin warm and dry. Normal skin color. Normal skin turgor. No rashes. MS: normal visual inspection of back. Tenderness to palpation along lumbar spine. Neuro: Oriented X 3. No motor deficit. No sensory deficit. Ambulatory <CAROLINA Murillo - Last Filed: 11/25/22 15:51> Course Course Course Narrative: This is an RME: Additional HPI, ROS, PE not included below will be de ferred to primary provider. 72-year-old female history of PVCs, hypertension acid reflux presents with lower back pain, she says it started to the right lower back and now is bilateral. She reports 10/10 back pain at times is worse at home a better at rest. This is been going on for few weeks intermittent in nature. She reports previous back injuries years ago falling off a roof however no recent injuries. Denies urinary/bowel incontinence or retention, numbness, tingling, saddle paresthesias, fevers, chills, IV drug abuse. Physical exam ambulatory. Benign on examination Will order x-rays of lumbar back. <CAROLINA Brown - Last Filed: 11/25/22 13:23> Medical Decision Making Medical Decision Making MDM Narrative: 72yo female presenting for back pain that she has been experiencing for years. Physical exam was unremarkable. No red flag symptoms of low back pain. X- ray showed an L1 compression fracture. Patient was prescribed Lidoderm patches and instructed to use Tylenol or Aleve as needed for pain. She was instructed to follow up with her primary care and call 911 or return to the ED if she develops new or worsening symptoms. <CAROLINA Murillo - Last Filed: 11/25/22 15:51> Differential Diagnosis Differential Diagnoses: The differential diagnosis associated with the presentation includes <CAROLINA Murillo - Last Filed: 11/25/22 15:51> compression fracture, lumbar strain, radiculopathy, herniated nucleus pulposus <CAORLINA Murillo - Last Filed: 11/25/22 15:51> Independent Interpretation I performed an independent interpretation of an: Plain X-Ray <CAROLINA Murillo - Last Filed: 11/25/22 15:51> Interpretation: L1 compression deformity apprecaited on x-ray <CAROLINA Murillo - Last Filed: 11/25/22 15:51> Radiology Impression Discussion of test interpretation with radiology: I have reviewed the radiologist's reading. <CAROLINA Murillo - Last Filed: 11/25/22 15:51> Radiologist Impression: XR/XR lumbar spine 2-3V IMPRESSION: Compression deformity at the approximate level of L1 with the acuity uncertain. ? Slight anterolisthesis L5-S1 level. Mild disc space narrowing L4-L5. ? Facet arthrosis. <CAROLINA Murillo - Last Filed: 11/25/22 15:51> External Record Review External record reviewed: Prior outpatient labs and Prior outpatient radiology <CAROLINA Murillo - Last Filed: 11/25/22 15:51> Prescription Management I considered prescription management with: Pain Medication <CAROLINA Murillo - Last Filed: 11/25/22 15:51> Chronic Conditions Patient?s care impacted by: Hypertension <CAROLINA Murillo - Last Filed: 11/25/22 15:51> Critical Care Time Critical Care Time Critical Care Time: No <CAROLINA Murillo - Last Filed: 11/25/22 15:51> Discharge Plan Discharge Clinical Impression: Compression fracture of L1 vertebra <CAROLINA Brown Last Filed: 11/25/22 13:23> Patient Disposition: Home, Self-Care <CAROLINA Brown - Last Filed: 11/25/22 13:23> Instructions: Vertebral Compression Fracture (ED) <CAROLINA Brown Last Filed: 11/25/22 13:23> Additional Instructions: You were seen today for evaluation of lower back pain. Your X-ray showed a compression fracture of your L1 vertebra. I have prescribed Lidoderm patches to help with the pain. It is important that you use them as directed. You can take Tylenol or Aleve as needed for pain management. Follow up with your primary care doctor and call 911 or return to the ER for new or worsening symptoms. <CAROLINA Brown - Last Filed: 11/25/22 13:23> Prescriptions: New lidocaine [Lidoderm] 5 % adhesive patch,medicated 1 patch topical DAILY Qty: 15 0RF Rx Instructions: leave on most painful area for up to 12 hrs No Action metoprolol succinate 50 mg tablet extended release 24 hr 1 tab PO DAILY rosuvastatin 20 mg tablet 1 tab PO DAILY furosemide 20 mg tablet 1 tab PO DAILY Citrucel 500 mg tablet 500 mg PO BID Qty: 60 5RF hydrochlorothiazide 12.5 mg capsule 12.5 mg PO DAILY omeprazole 40 mg capsule,delayed release(DR/EC) 40 mg PO DAILY sertraline 100 mg tablet 200 mg PO DAILY losartan 50 mg tablet 50 mg PO DAILY bupropion HCl 300 mg tablet extended release 24 hr 300 mg PO DAILY oxybutynin chloride 15 mg tablet extended release 24hr 15 mg PO DAILY meloxicam 15 mg tablet 15 mg PO DAILY <CAROLINA Brown - Last Filed: 11/25/22 13:23> Interventions: ED Discharge Assessment Last Done: 11/25/22 15:50 <CAROLINA Brown - Last Filed: 11/25/22 13:23>
== END 2022-11-25 15:50 | disposition home or self-care (01) ==
PROVIDERS: Emergency Provider Emergency Medicine; PCP Internal Medicine
DX: M48.54XA Collapsed vertebra, not elsewhere classified, thoracic region, initial encounter for fracture (principal); I10 Essential (primary) hypertension; E78.5 Hyperlipidemia, unspecified; R60.0 Localized edema; Z79.02 Long term (current) use of antithrombotics/antiplatelets; Z79.899 Other long term (current) drug therapy
CPT/HCPCS: 72100; 99282; 99283

== ENCOUNTER 2023-11-05 07:41 | Outpatient (AMB) | payer MEDICARE, SELFPAY ==
--- NOTE | 2023-11-05 07:50 | MHC.OFFVIS ---
Intake Vital Signs 11/05/23 07:53 11/05/23 08:19 Height 5 ft 8 in Weight 204 lb BMI 31.0 BP 110/57 L Blood Pressure Location Lt brachial Position Sitting Pulse 65 66 Pulse Source Auscultation Intake Visit Reasons: G.I Bleed Intake Note: Patient follow up for GI bleeding, last office visit was 04/2021. Patient cc: loosing weight, and no appetite. Denies any GI issues. She was admitted at [facility] x 4 dates due rectal bleeding. 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 Accompanied by: Self / Same As Patient Allergies No Known Allergies Allergy (Verified 11/05/23 07:49) Medication List - Last Reconciled 11/05/23 by CAROLINA Naranjo-Klaus bupropion HCl 300 mg PO DAILY furosemide 1 tab PO DAILY hydrochlorothiazide 12.5 mg PO DAILY lidocaine 5% (Lidoderm) 1 patch topical DAILY losartan 50 mg PO DAILY meloxicam 15 mg PO DAILY methylcellulose (laxative) (Citrucel) 500 mg PO BID metoprolol succinate ER 1 tab PO DAILY omeprazole 40 mg PO DAILY oxybutynin chloride ER 15 mg PO DAILY rosuvastatin 1 tab PO DAILY sertraline 200 mg PO DAILY HPI HPI Comments History of Present Illness Details A 73 y/o female seen by us in 2020- she then followed with Dr. 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 She now follows with [facility] for her care- they were booking out too far- Now no further rectal bleeding- she is having loser stool- gave me a bunch of new medicines - she does not know what she takes she forgot her list, her phone etc- Appetite is good- no abdominal pain- Brought her son int- he says she has cardiology appointment- [facility]-11/19/23 Another on [facility]-11/23 Dr. Burrell- pcp- has f/u appt- Currently She has not had any nausea, vomiting, abdominal pain hematemesis or hematochezia no fever or chills [facility] Medical History (Updated 11/16/23 @ 13:29 by Binta Wayne PA-C) Lower extremity edema HTN (hypertension) Hyperlipemia Depression Breast abscess Surgical History (Updated 11/05/23 @ 08:12 by Binta Wayne PA-C) History of lumpectomy H/O hemorrhoidectomy Hx of colonoscopy History of esophagogastroduodenoscopy (EGD) Family History Mother Stroke Father No problems noted. Brother Myocardial infarction Son History of open heart surgery, Onset Age: 36 Pacemaker, Onset Age: 36 Social History Household Members Other:: lives with son Alcohol intake: never Patient Tobacco Use Status: Former Tobacco user Quit Date: 30 yrs ago Current occupational status: disabled Review of Systems Const All systems reviewed & are unremarkable except as noted in HPI and below Card Denies chest pain, Denies chest pain at rest, Denies chest pain with activity, Denies dyspnea and Denies dyspnea on exertion Resp Denies dyspnea and Denies dyspnea on exertion GI Denies abdominal pain, Denies hematochezia, Denies heartburn, Denies nausea and Denies vomiting Psych Reports anxiety Physical Exam Vital Signs: Last Vital Signs Pulse 66 11/05/23 08:19 BP 110/57 L 11/05/23 07:53 BMI result Body Mass Index 31.0 Const General: cooperative, healthy appearing, comfortable and no acute distress Orientation/consciousness: patient oriented x3 Limitations: no limitations Eyes Sclerae: sclerae normal Resp Effort & Inspection: normal respiratory effort and able to speak in complete sentences Auscultation: clear to auscultation bilaterally, no rales, no rhonchi and no wheezes Cardio Rate: regular rate Rhythm: regular rhythm Heart sounds: S1 normal heart sound present and S2 normal heart sound present GI Palpation (GI): Soft to palpation and no guarding Auscultation: normal bowel sounds Skin General skin exam: no rashes or lesions noted Neuro General: patient oriented x3 Extrem General: Yes full ROM Psych Appearance: well kempt Speech and movement: Pressured speech present Affect: Anxious affect present Attitude: cooperative Thought process: Flight of ideas present Thought content: suicidality and no homicidality Results Reviewed Results Reviewed: [address] [address] Brief Operative Note Signed Patient: Sheila Pryor MR#: [id number] : 1950 Acct:[id number] Age/Sex: 71 / F Loc: [facility] Attending Dr: Jose De Jesus Sanchez cc: ~ Brief Operative Note Date of Service: 09/15/22 Pre-op diagnosis: Screening Post-op diagnosis: other (Diverticulosis) Procedure: Colonoscopy to the cecum Surgeon: Jose De Jesus Sanchez Anesthesia: MAC Was an Acid Regenerator used for this Procedure?: No Estimated blood loss (mL): 0 Pathology: none sent Condition: stable Disposition: PACU Dictated By: Jose De Jesus Sanchez Signed By: <Electronically signed by Jose De Jesus Sanchez> 09/15/22 1523 DD/ 1522 TD/TT: 09/15/22 1522 - Laura Diverticulosis hemorrhoids NO POLYPS Assessment & Plan Assessment & Plan (1) Rectal bleeding: Comment: on TP- x 1 after straining- resolved- Code(s): K62.5 - Hemorrhage of anus and rectum (2) Poor historian: Comment: unable to list meds-details hx- limited-Reviewed Very difficult to assess-currently no GI complaint Is established with GI Dr. Sanchez-plans to continue Has clearly cardiac diagnoses unable to give detail will reinforced importance of cardiology follow through She has no cardiac complaints today Physical exam unremarkable Code(s): Z78.9 - Other specified health status Plan: Son to come into room to her agreement-he will be sure she is seen by Cardiology-appointment is already scheduled Plan Need to bring medication list- F/U pcp re: eliquis Orders: Orders IRON PROFILE 11/05/23 K62.5 - Hemorrhage of anus and rectum, Z78.9 - Other specified health status Thyroid Stimulating Hormone 11/05/23 R19.8 - Other specified symptoms and signs involving the digestive system and abdomen Comprehensive Met. Panel 11/05/23 K58.9 - Irritable bowel syndrome without diarrhea Complete Blood Count Auto Diff 11/05/23 Z78.9 - Other specified health status, K62.5 - Hemorrhage of anus and rectum Patient Instructions: 73-year-old female poor historian, multiple comorbidities established with another GI practice-she plans to stay with- Explained in detail to pt and son- the importance of f/u- certainly- eliquis Encouraged to call with questions or concerns or reconsiders GI practice. Coding Level of Care Code New Pt Level 4 (44672) Diagnoses Rectal bleeding K62.5 Poor historian Z78.9 Time Spent (min) 50
[2023-11-05 07:53] VITALS: BP 110/57; PULSE 65; BMI 31.0
[2023-11-05 08:19] VITALS: PULSE 66
== END 2023-11-05 08:45 | disposition home or self-care (01) ==
PROVIDERS: PCP Internal Medicine; Visit Provider Physician Assistant
DX: K62.5 Hemorrhage of anus and rectum (principal)
CPT/HCPCS: 99215

== ENCOUNTER → 2023-11-05 07:41 | Outpatient (BNVA) | payer MEDICARE, OTHER, SELFPAY | PROVIDERS: PCP Internal Medicine; Visit Provider Physician Assistant | DX: K62.5 Hemorrhage of anus and rectum (principal); Z78.9 Other specified health status | CPT/HCPCS: 99212 ==